=== PATIENT | male | born 1960 | race Two or more races ===

== ENCOUNTER 2024-01-14 06:27 | Inpatient (IN) | payer OTHER ==
[~2024-01-14] VITALS: Ht 154.9 cm; Wt 50.8 kg
[2024-01-14] MEDS ORDERED: ACETAMINOPHEN 325 MG TABLET PO PRN (09:00)
[2024-01-14] MEDS ORDERED: ONDANSETRON HCL/PF 4 MG/2 ML VIAL IVP PRN (09:00)
[2024-01-14] MEDS ORDERED: Z GUARD REMEDY 4 OZ OINT TP PRN (09:00)
[2024-01-14] MEDS: ASPIRIN EC 81 MG TABLET.DR PO SCH (09:00)
[2024-01-14] MEDS: ASPIRIN 81 MG TAB.CHEW PO SCH (09:45)
[2024-01-14 10:00] VITALS: BP 128/79; TEMP 97.7; O2SAT 100
[2024-01-14 10:12] LABS: BASOPHILS % (AUTO) 0.6 % (0.0-2.0); EOSINOPHILS # (AUTO) 0.2 K/uL (0.0-0.7); EOSINOPHILS % (AUTO) 2.3 % (0.0-6.0); HEMATOCRIT 37 % (39-51); HEMOGLOBIN 12.4 g/dL (13.5-17.5); LYMPHOCYTES # (AUTO) 1.6 K/uL (0.8-4.8); LYMPHOCYTES % (AUTO) 20.2 % (20.0-44.0); MEAN CORPUSCULAR HEMOGLOBIN 30 PG (26.0-33.0); MEAN CORPUSCULAR HGB CONC 34 g/dl (31.0-36.0); MEAN CORPUSCULAR VOLUME 88 fL (80-96); MONOCYTES # (AUTO) 0.9 K/uL (0.1-1.30); MONOCYTES % (AUTO) 11.3 % (2.0-12.0); NEUTROPHILS # (AUTO) 5.1 K/uL (1.8-8.9); NEUTROPHILS % (AUTO) 65.6 % (43.0-81.0); PLATELET COUNT (AUTO) 276 K/uL (150-450); RED BLOOD CELL COUNT(AUTO) 4.19 MIL/uL (4.5-6.0); RED CELL DISTRIBUTION WIDTH 14.1 % (11.5-15.0); WHITE BLOOD COUNT (AUTO) 7.7 K/uL (4.3-11.0)
[2024-01-14 10:31] LABS: ALANINE AMINOTRANSFERASE 46 U/L (12-78); ALBUMIN 3.7 g/dL (3.4-5.0); ALKALINE PHOSPHATASE 87 U/L (46-116); ASPARTATE AMINOTRANSFERASE 35 U/L (15-37); BILIRUBIN,TOTAL 0.5 mg/dL (0.2-1.0); CALCIUM, SERUM 9.6 mg/dL (8.5-10.1); CARBON DIOXIDE 27 mmol/L (21-32); CHLORIDE 106 mmol/L (98-107); GLUCOSE 89 mg/dL (74-106); MAGNESIUM 1.9 mg/dL (1.8-2.4); PHOSPHORUS 3.9 mg/dL (2.5-4.9); POTASSIUM 3.6 mmol/L (3.5-5.1); SODIUM SERUM 140 mmol/L (136-145); TOTAL PROTEIN, SERUM 7.5 g/dL (6.4-8.2); UREA NITROGEN, BLOOD 13 mg/dL (7-18)
[2024-01-14 10:43] LABS: CHOLESTEROL 126 mg/dL (<200); HDL CHOLESTEROL 53 mg/dL (40-60); LDL 62 mg/dL (0-99); TRIGLYCERIDES 70 mg/dL (30-150)
[2024-01-14] MEDS: ATORVASTATIN 10 MG TABLET PO SCH (10:58)
[2024-01-14 12:00] VITALS: BP 125/77; TEMP 97.7; O2SAT 100
[2024-01-14] MEDS: METOPROLOL TARTRATE 50 MG TABLET PO SCH (12:02)
[2024-01-14] MEDS: ENOXAPARIN SODIUM 40 MG/0.4 ML DISP.SYRIN SQ SCH (12:02)
[2024-01-14 12:38] VITALS: BP 125/77; TEMP 97.7; O2SAT 100
[2024-01-14] MEDS ORDERED: ATOR40TA PO (15:03)
[2024-01-14] MEDS ORDERED: AMLO-212 PO (15:03)
[2024-01-14] MEDS ORDERED: METO-357 PO (15:03)
[2024-01-14] MEDS ORDERED: LISI1TAB29 PO (15:03)
[2024-01-14] MEDS ORDERED: ASPI-1420 PO (15:03)
[2024-01-14] MEDS ORDERED: METF-440 PO (15:03)
[2024-01-14 16:00] VITALS: BP 104/64; TEMP 98.2; O2SAT 99
[2024-01-14] MEDS ORDERED: IOHEXOL-350 100 ML VIAL IV ONE (17:55)
[2024-01-14] MEDS ORDERED: METOPROLOL TARTRATE INJ 5 MG/5 ML AMPUL ONE (17:55)
[2024-01-14] MEDS ORDERED: NITROGLYCERIN 4.9 GM SPRAY ONE (17:55)
[2024-01-14] MEDS ORDERED: IV NS 0.9% 250 ML IV ONE (17:56)
[2024-01-14] MEDS ORDERED: CT SWABBABLE VALVE TRANS SET 1 EA INFUS.SET MC ONE (17:56)
[2024-01-14] MEDS: METOPROLOL TARTRATE INJ 5 MG/5 ML AMPUL IVP PRN (18:13)
[2024-01-14] MEDS ORDERED: NITROGLYCERIN 0.4 MG/TAB BOTTLE ONE (18:16)
[2024-01-14] MEDS: NITROGLYCERIN 0.4 MG/TAB BOTTLE SL ONE (18:18)
[2024-01-14 20:00] VITALS: BP 103/62; TEMP 98.1; O2SAT 100
[2024-01-15] VITALS: BP 106/69; TEMP 98.1; O2SAT 98
[2024-01-15 04:00] VITALS: BP 103/62; TEMP 97.9; TEMP 98; O2SAT 98
[2024-01-15 04:30] VITALS: BP 103/62; TEMP 97.9; O2SAT 98
[2024-01-15 06:21] LABS: BASOPHILS % (AUTO) 0.6 % (0.0-2.0); EOSINOPHILS # (AUTO) 0.2 K/uL (0.0-0.7); EOSINOPHILS % (AUTO) 2.6 % (0.0-6.0); HEMATOCRIT 36 % (39-51); HEMOGLOBIN 12.3 g/dL (13.5-17.5); LYMPHOCYTES # (AUTO) 1.8 K/uL (0.8-4.8); LYMPHOCYTES % (AUTO) 22.8 % (20.0-44.0); MEAN CORPUSCULAR HEMOGLOBIN 30 PG (26.0-33.0); MEAN CORPUSCULAR HGB CONC 35 g/dl (31.0-36.0); MEAN CORPUSCULAR VOLUME 88 fL (80-96); MONOCYTES # (AUTO) 0.9 K/uL (0.1-1.30); MONOCYTES % (AUTO) 11.1 % (2.0-12.0); NEUTROPHILS % (AUTO) 62.9 % (43.0-81.0); PLATELET COUNT (AUTO) 279 K/uL (150-450); RED BLOOD CELL COUNT(AUTO) 4.09 MIL/uL (4.5-6.0); RED CELL DISTRIBUTION WIDTH 14.4 % (11.5-15.0); WHITE BLOOD COUNT (AUTO) 7.9 K/uL (4.3-11.0)
[2024-01-15 07:12] LABS: CALCIUM, SERUM 9.3 mg/dL (8.5-10.1); CREATININE 1.1 mg/dL (0.6-1.3); MAGNESIUM 1.9 mg/dL (1.8-2.4); PHOSPHORUS 4.3 mg/dL (2.5-4.9); POTASSIUM 4.1 mmol/L (3.5-5.1)
[2024-01-15] MEDS: PANTOPRAZOLE 40 MG TABLET.DR PO SCH (07:57)
[2024-01-15 08:23] VITALS: BP 116/70; TEMP 97.9; O2SAT 99
[2024-01-15] MEDS: MAG HYDROX/AL HYDROX/SIMETH 30 ML UDC PO PRN (09:38)
[2024-01-15] MEDS ORDERED: MAG HYDROX/AL HYDROX/SIMETH 30 ML UDC PO PRN (10:00)
[2024-01-15] MEDS ORDERED: ATOR10TA PO (10:25)
[2024-01-15] MEDS ORDERED: [UNRECOGNIZED DRUG - CODE] PO (10:25)
[2024-01-15] MEDS ORDERED: PANT40TA2 PO ×2 (10:25→17:18)
[2024-01-15] MEDS: DICYCLOMINE HCL 10 MG CAPSULE PO SCH (10:57)
[2024-01-15] MEDS: MORPHINE SULFATE INJ 2 MG/ML DISP.SYRIN IV ONE (12:17)
[2024-01-15] MEDS: IV LR 1000 ML 1,000 ML IV ONE (12:22)
[2024-01-15 15:59] VITALS: BP 113/69; TEMP 97.8; O2SAT 96
[2024-01-15] MEDS ORDERED: IV NS 0.9% 250 ML IV ONE (16:20)
[2024-01-15] MEDS ORDERED: IOHEXOL-350 100 ML VIAL IV ONE (16:20)
[2024-01-15] MEDS ORDERED: CT SWABBABLE VALVE TRANS SET 1 EA INFUS.SET MC ONE (16:20)
[2024-01-15 17:07] VITALS: BP 115/72
[2024-01-15] MEDS ORDERED: SUCR1ORA6 PO (17:18)
[2024-01-15] MEDS ORDERED: ATOR40TA PO (17:18)
== END 2024-01-15 18:10 | disposition home or self-care (01) | DRG 243 ==
LOC: TELE 08:37 → MED 01-15 10:55
PROVIDERS: ADMIT Nurse Practitioner Family; ATTEND Nurse Practitioner Family
DX: K21.9 Gastro-esophageal reflux disease without esophagitis (principal); D64.9 Anemia, unspecified; I25.10 Atherosclerotic heart disease of native coronary artery without angina pectoris; E78.5 Hyperlipidemia, unspecified; I10 Essential (primary) hypertension; R73.03 Prediabetes; F17.210 Nicotine dependence, cigarettes, uncomplicated; Z71.6 Tobacco abuse counseling
CPT/HCPCS: 36415; 71045-TC; 75574; 76700-TC; 80048-TC; 80053-TC; 80061-TC; 82962-TC; 83735-TC; 84100-TC; 84443-TC; 84484-TC; 85025-TC; 93307-TC; A4223; G0378; J1650; J3490; J7050; J7120; Q9967